=== PATIENT | female | born 1990 ===

== ENCOUNTER 2017-05-29 07:25 | Emergency (ER) | payer BC ==
[2017-05-29 07:39] VITALS: BP 132/84
--- NOTE | 2017-05-29 14:49 | UC ---
Joel Gilliam Angela, scribed for Le Stanton DO on 05/29/17 at 0849 . General HPI - HPI Summary HPI Summary: This pt is a 27 y/o female presenting to [facility] c/o sore throat, myalgia x2 days. She states she had white spots in the back of her throat 2 days ago. Pt reports that 2 days ago she had a subjective fever at night and it broke yesterday. Pt additionally c/o nasal drainage,cough (which began yesterday), and nausea. She states she couldn't sleep last night secondary to sore throat. She notes that drinking is very painful. Pt has had strep throat before. PMHx: PTSD. Pt takes Sertraline for PTSD but has not taken it in the past 2 days as she was anticipating to take antibiotics for her current symptoms. Pt has been given erythromycin before and had a bad reaction with Sertraline. Allergies: penicilling (unknown reaction when she was a baby). - History of Current Complaint Chief Complaint: UCRespiratory Stated Complaint: SORE THROAT Time Seen by Provider: 05/29/17 07:50 Hx Obtained From: Patient Hx Last Menstrual Period: 04/18/17 Onset/Duration: Lasting Days, Still Present Timing: Constant Pain Intensity: 7 - out of 10 in severity Associated Signs & Symptoms: Positive: Cough, Fever, Nausea, Other - myalgia, sore throat, nasal drainage. Negative: Abdominal Pain, Headache, Vomiting - Allergy/Home Medications Allergies/Adverse Reactions: Allergies Allergy/AdvReac Type Severity Reaction Status Date / Time Penicillins [PCN] Allergy Rash Verified 05/29/17 07:39 Home Medications: Home Medications Acetaminophen [Acetaminophen Extra Stren] 1,000 mg PO Q6H PRN 05/29/17 [History Confirmed 05/29/17] Naproxen [Naproxen 500 mg] 500 mg PO Q8H PRN 05/29/17 [History Confirmed ] Sertraline* [Zoloft*] 50 mg PO DAILY 05/29/17 [History Confirmed 05/29/17] PMH/Surg Hx/FS Hx/Imm Hx Other Respiratory History: DENIES: asthma Psychological History: Post Traumatic Stress Disorder - Surgical History Surgical History: Yes Surgery Procedure, Year, and Place: appendectomy - Family History Known Family History: Positive: Diabetes - father, Other - [place]. Mother: asthma - Social History Alcohol Use: Occasionally Substance Use Type: None Smoking Status (MU): Never Smoked Tobacco - Immunization History Most Recent Influenza Vaccination: none Review of Systems Constitutional: Fever - last night Skin: Negative Eyes: Negative ENT: Sore Throat, Nasal Discharge, Other - NEG: ear ache Respiratory: Cough Cardiovascular: Negative Gastrointestinal: Nausea, Other - NEG: vomiting, abd pain Genitourinary: Negative Motor: Negative Neurovascular: Negative Musculoskeletal: Myalgia Neurological: Negative Psychological: Negative All Other Systems Reviewed And Are Negative: Yes Physical Exam Triage Information Reviewed: Yes Appearance: Well-Appearing, No Pain Distress, Well-Nourished Vital Signs: Initial Vital Signs Temp 97.9 F 05/29/17 07:34 Pulse 70 05/29/17 07:34 Resp 16 05/29/17 07:34 BP 132/84 05/29/17 07:34 Pulse Ox 99 05/29/17 07:34 Vital Signs Reviewed: Yes Eyes: Positive: Conjunctiva Clear. Negative: Discharge ENT: Positive: Hearing grossly normal, Pharyngeal erythema, TMs normal, Tonsillar swelling, Tonsillar exudate, Other: - enlarged tonsils. Negative: Trismus, Muffled/hoarse voice Neck exam: Normal Neck: Positive: Supple, Tenderness @, Enlarged Nodes @ Respiratory: Positive: Lungs clear, Normal breath sounds, No respiratory distress, No accessory muscle use Cardiovascular: Positive: RRR, No Murmur Musculoskeletal Exam: Normal Neurological: Positive: Alert, Muscle Tone Normal Psychological Exam: Normal Psychological: Positive: Age Appropriate Behavior Skin Exam: Normal, Other - warm, dry, normal color Course/Dx - Course Course Of Treatment: Medications reviewed this visit. High blood pressure noted likely due to pts condition. Rapid strep test is negative. - Differential Dx - Multi-Symptom Provider Diagnoses: Pharyngitis. Elevated blood pressure without diagnosis of hypertension Discharge - Discharge Plan Condition: Stable Disposition: HOME Prescriptions: Magic Mouth Was-ARACELI/MAAL/LIDO* 5 ml SWISH SPIT QID PRN #100 ml PRN Reason: Pain predniSONE TAB* [Deltasone TAB*] 40 mg PO DAILY #10 tab Patient Education Materials: Pharyngitis (ED) Referrals: No Primary Care Phys,NOPCP [Primary Care Provider] - Additional Instructions: YOUR RAPID STREP WAS NEGATIVE. WE WILL SEND IN THE SWAB FOR CULTURE TO VERIFY. YOU WILL BE CALLED IF IT IS POSITIVE. THERE IS NO HARM IN WAITING THE 2 DAYS FOR A RESULT. IN THE MEANTIME WE WILL TREAT YOUR SYMPTOMS WITH THE FOLLOWING MEDICATIONS: CORTICOSTEROID MEDICATION: You have been given a medicine of the cortisone class. This medication is used to control inflammation or allergy. It is usually only given for a short period of time, until the acute process subsides. There are usually no side effects from short-term use of cortisone-like medications. Some persons feel an increased sense of well-being and are not sleepy at bedtime. Long-term use of cortisone medications is best avoided, unless required for a severe condition. If your condition does not remit, or relapses after the course of corticosteroid medication, you should consult your physician. Contact the physician if you develop lightheadedness, black or tarry stools , swelling of the legs, or significant rapid change in weight. DISCUSSED, TRY MAGIC MOUTHWASH TO CONTROL PAIN PRIOR TO EATING. Your blood pressure was elevated at this visit. That does not mean you have hypertension, it is probably due to your current condition. Please follow up with your primary care provider. The documentation as recorded by the Joel yi Angela accurately reflects the service I personally performed and the decisions made by , Le Stanton DO.
== END 2017-05-29 09:10 | disposition home or self-care (01) ==
LOC: UCEAST 07:25
DX: J02.9 Acute pharyngitis, unspecified (principal); Z88.0 Allergy status to penicillin; F43.10 Post-traumatic stress disorder, unspecified; R03.0 Elevated blood-pressure reading, without diagnosis of hypertension
CPT/HCPCS: 87070; 87077; 87185; 87651; 99202; G0463